=== PATIENT | female | born 1980 | race Caucasian/White ===

== ENCOUNTER 2017-03-04 16:07 | Emergency (ER) | payer OTHER ==
[~2017-03-04] VITALS: Ht 165.1 cm; Wt 90.8 kg
[~2017-03-04 16:07] MED LIST: ENDOCET 5-3251 EACH PO; IBUPROFEN800 MG PO; PRENATAL TABLE1 EAC3 PO; PROZAC20 MG PO; TUMS500 MG PO; ZANTAC150 MG PO
[2017-03-04 16:47] LABS: HEMATOCRIT 35.2 % (36.0-46.0); MCH 30.5 PG (29.0-34.0); MCHC 34.1 G/DL (30.0-36.0); MCV 89.3 FL (83-99); MEAN PLAT.VOLUME 8.8 uM^3 (9.5-12.4); PLATELET COUNT 339 K/uL (156-360); RBC DIS.WIDTH-CV 11.9 % (11.8-14.6); RBC DIS.WIDTH-SD 38.8 % (39-53); RED BLOOD COUNT 3.94 M/uL (3.80-5.20); WHITE BLOOD COUNT 6.8 K/uL (4.1-10.2)
[2017-03-04 16:57] LABS: CHLORIDE 108 mEq/L (99-109); POTASSIUM 3.7 mEq/L (3.7-5.4); SODIUM 139 mEq/L (136-147)
[2017-03-04 17:00] LABS: GLUCOSE 83 mg/dL (70-99)
[2017-03-04 17:01] LABS: ANION GAP 7 MEQ/L (2-14)
[2017-03-04 17:02] LABS: TOTAL BILIRUBIN 0.3 mg/dL (0.0-1.0)
[2017-03-04 17:03] LABS: ALKALINE PHOSPHATASE 69 IU/L (3-129); GFR ESTIMATE (CALCULATED) > 59 mL/min/
[2017-03-04 17:04] LABS: UREA NITROGEN (BUN) 11 mg/dL (9-23)
[2017-03-04 17:12] LABS: QUANTITATIVE HCG < 4.0 MIU/ML
[2017-03-04 17:42] LABS: LIPASE 21 U/L (1.0-51.0)
[2017-03-04 18:21] LABS: COLOR RED ((YELLOW)); LEUKOCYTES MODERATE; NITRITE POSITIVE
[2017-03-04 18:22] LABS: ADD MIUA? YES; BILIRUBIN SMALL; BLOOD LARGE; GLUCOSE (STRIP) NEGATIVE; KETONES SMALL; PH, URINE 6 (5-8); PROTEIN (STRIP) >=2000; UROBILINOGEN 0.2 MG/DL (0.2-1.0)
[2017-03-04 18:24] LABS: RED BLOOD CELLS TNTC /HPF (0-5); UCUL ADDED? YES
[2017-03-04] MEDS ORDERED: ZOFRAN ODT4 MG PO (18:58)
[2017-03-04] MEDS ORDERED: BENTYL10 MG PO (18:58)
[2017-03-04] MEDS ORDERED: PRILOSEC20 MG PO (19:01)
[2017-03-04] MEDS ORDERED: CIPRO500 MG PO (19:02)
[2017-03-04 19:14] VITALS: BP 124/85
== END 2017-03-04 19:16 | disposition home or self-care (01) ==
LOC: EME 16:07
DX: K29.70 Gastritis, unspecified, without bleeding (principal); N39.0 Urinary tract infection, site not specified
CPT/HCPCS: 74177; 80053; 81003; 83690; 84702; 85027; 87086; 99281; 99285; J2405; J3010; J7030

== ENCOUNTER → 2017-12-27 | Outpatient (CLI) | payer OTHER ==
[~2017-12-27] VITALS: Ht 165.1 cm; Wt 90.7 kg
[~2017-12-27] MED LIST changes: +BENTYL10 MG PO; +CIPRO500 MG PO; +PRILOSEC20 MG PO; +ZOFRAN ODT4 MG PO
== END | disposition home or self-care (01) ==
LOC: AMB 09:16
DX: K20.0 Eosinophilic esophagitis (principal); K29.80 Duodenitis without bleeding; E66.9 Obesity, unspecified; Z80.3 Family history of malignant neoplasm of breast; Z82.49 Family history of ischemic heart disease and other diseases of the circulatory system
CPT/HCPCS: 88305